=== PATIENT | female | born 1995 | race Two or more races ===

== ENCOUNTER 2017-04-14 08:50 | Emergency (ER) | payer OTHER ==
[2017-04-14 08:58] VITALS: BP 125/79; PULSE 90; TEMP 98.3; BMI 26.5
--- NOTE | 2017-04-14 09:11 | PDOC ---
History of Present Illness - General Chief Complaint: Asthma Stated Complaint: SOB Time Seen by Provider: 04/14/17 09:10 History Source: Patient Exam Limitations: No Limitations - History of Present Illness Initial Comments: 04/14/17 09:21 Patient came to emergency department with re-exacerbation of her asthma. has been using her nebulizers at home with minimal resolved. every year gets a worsened asthma attack secondary to pollens and seasonal ALLERGIES. also has a dog at home where she nose is an allergen provoker. Denies fever, denies any phlegm production, but has concerns about pneumonia as she is been admitted more than once for severe respiratory issues and minimal 9 last year. 04/14/17 19:47 Timing/Duration: reports: constant, getting worse Severity: reports: moderate Possible Cause: Yes: allergen exposure Modifying Factors: improves with: albuterol inhaler, coughing Associated Symptoms: reports: chest pain/soreness, nasal congestion, shortness of breath. denies: fever/chills Past History - Travel Traveled outside of the country in the last 30 days: No Close contact w/someone who was outside of country & ill: No - Past Medical History Allergies/Adverse Reactions: Allergies Allergy/AdvReac Type Severity Reaction Status Date / Time azithromycin [From Zithromax] AdvReac Mild Vomiting Verified 04/14/17 08:54 Home Medications: Ambulatory Orders Albuterol Sulfate Inhaler - [Ventolin HFA Inhaler -] 1 - 2 inh IH Q4H #1 inhaler 06/14/12 Albuterol 0.083% Nebulizer Gay [Ventolin 0.083% Nebulizer Soln -] 1 neb NEB Q4H PRN #30 vial 04/14/17 Prednisone [Deltasone -] 20 mg PO BID #8 tablet 04/14/17 Asthma: Yes - Reproductive History (#): 1 Therapeutic (s) & number: (DENIES) - Immunization History Immunization Up to Date: Yes - Suicide/Smoking/Psychosocial Hx Smoking Status: No Smoking History: Never smoked Have you smoked in the past 12 months: No Number of Cigarettes Smoked Daily: 0 Information on smoking cessation initiated: No Hx Alcohol Use: No Drug/Substance Use Hx: No Substance Use Type: None Respiratory Specific PMHX - Complaint Specific PMHX Bronchitis: Yes Pneumonia: Yes Review of Systems - Review of Systems Able to Perform ROS?: Yes Is the patient limited Nepalese proficient: Yes Constitutional: Yes: Symptoms Reported, See HPI, Malaise. No: Fever, Loss of Appetite HEENTM: Yes: Symptoms Reported, See HPI, Nose Congestion Respiratory: Yes: Symptoms reported, See HPI, Cough, Shortness of Breath, Wheezing Cardiac (ROS): No: Symptoms Reported ABD/GI: Yes: See HPI. No: Symptoms Reported : No: Symptoms Reported Musculoskeletal: Yes: Symptoms Reported, See HPI Integumentary: Yes: See HPI. No: Symptoms Reported All Other Systems: Reviewed and Negative *Physical Exam - Vital Signs Last Vital Signs Temp Pulse Resp BP Pulse Ox 98.3 F 90 16 125/79 98 04/14/17 08:55 04/14/17 08:55 04/14/17 08:55 04/14/17 08:55 04/14/17 08:55 - Physical Exam General Appearance: Yes: Nourished, Appropriately Dressed, Apparent Distress, Mild Distress HEENT: positive: RACQUEL, TMs Normal (congested but landmarks easily visualized), Nasal Congestion, Rhinorrhea, Sinus Tenderness. negative: Pharynx Normal, Pharyngeal Erythema Neck: positive: Supple. negative: Tender Respiratory/Chest: positive: Labored Respiration, Decreased Breath Sounds, Rhonchi, Wheezing. negative: Lungs Clear, Normal Breath Sounds Cardiovascular: positive: Regular Rate Gastrointestinal/Abdominal: positive: Soft. negative: Tender Extremity: positive: Normal Capillary Refill, Normal Inspection Integumentary: positive: Normal Color, Dry, Warm, Pale Neurologic: positive: topstitcher lockstitch II-XII NML intact, Fully Oriented, Alert, Normal Mood/ Affect, Normal Response, Motor Strength 5/5 Progress Note - Progress Note Progress Note: Asthma exacerbation, will resolved after 4 DuoNeb nebs and prednisone however has continued wheezing. Chest x-ray negative for pneumonia Patient feels ready for discharge, and understands need for continued nebulizers today and urgency to return to emergency department for any worsening of symptoms *DC/Admit/Observation/Transfer Diagnosis at time of Disposition: Asthma with exacerbation Qualifiers: Asthma severity: moderate Asthma persistence: unspecified Qualified Code(s): J45.901 - Unspecified asthma with (acute) exacerbation - Discharge Dispostion Disposition: HOME Condition at time of disposition: Stable Admit: No - Prescriptions Prescriptions: Prednisone [Deltasone -] 20 mg PO BID #8 tablet Albuterol 0.083% Nebulizer Gay [Ventolin 0.083% Nebulizer Soln -] 1 neb NEB Q4H PRN #30 vial PRN Reason: Cough - Referrals Referrals: Jt Stinson MD [Staff Physician] - - Patient Instructions Printed Discharge Instructions: Asthma -- Adult, DI for Allergic Rhinitis Additional Instructions: Rest, drink lots of fluids: Teas, water, soups, Pedialyte Saltwater gargles Steamy showers/seem to face break up mucus Avoid contact with others until fevers and cough resolved Lots of handwashing and good hygiene Continue [id number] medications for symptomatic relief Tylenol or Motrin for fever and pain Continue antihistamines until pollen season is over Continue albuterol nebulizers every 4-6 hours for the next 3 days then as needed Complete prednisone 40 mg daily for the next 4 days Followup with private physician in one to 2 days as needed Return to emergency department for worsened symptoms, fevers, dehydration - Post Discharge Activity Forms/Work/School Notes: Back to School
[2017-04-14] MEDS ORDERED: ALBUTEROL SO4 2.5/IPRATROPIUM 0.5 INH SOL 3 ML VIAL.NEB. NEB ONE ×4 (09:20→10:58)
[2017-04-14] MEDS ORDERED: predniSONE 20 MG TABLET (UD) PO ONE (09:20)
[2017-04-14] MEDS ORDERED: predniSONE 20 MG TABLET (UD) ONE (09:23)
[2017-04-14] MEDS: ALBUTEROL SO4 2.5/IPRATROPIUM 0.5 INH SOL 3 ML VIAL.NEB. NEB SCH ×3 (09:30→10:07)
== END 2017-04-14 12:17 | disposition home or self-care (01) ==
LOC: JERFT 08:50
PROC: 3E0F7GC Introduction of Other Therapeutic Substance into Respiratory Tract, Via Natural or Artificial Opening (ICD-10-PCS; principal; 2017-04-14)
PROC: 3E0F7GC Introduction of Other Therapeutic Substance into Respiratory Tract, Via Natural or Artificial Opening (ICD-10-PCS; 2017-04-14)
DX: J45.901 Unspecified asthma with (acute) exacerbation (principal)
CPT/HCPCS: 71020-TC; 94640; 99281-25

== ENCOUNTER 2017-07-14 17:59 | Emergency (ER) | payer OTHER ==
[2017-07-14 18:05] VITALS: BP 120/59; PULSE 69; TEMP 97.7; BMI 21.9
[2017-07-14] MEDS ORDERED: DIPHTH,PERTUSS(ACELL),TET 0.5 ML DISP.SYRIN IM ONE (19:21)
--- NOTE | 2017-07-14 19:25 | PDOC ---
History of Present Illness - General Chief Complaint: Injury Stated Complaint: HAND INJURY Time Seen by Provider: 07/14/17 18:14 History Source: Patient Exam Limitations: No Limitations - History of Present Illness Initial Comments: 07/14/17 19:21 21-year-old female presents to the ED for evaluation of injury to the left ear. Patient states is his denies when it slipped causing it to puncture the top aspect of the left hand. Patient states is not up-to-date on tetanus and denies any sensory changes distal of injury. Timing/Duration: 1/2 hour Associated Symptoms: reports: denies symptoms Past History - Travel Traveled outside of the country in the last 30 days: No - Past Medical History Allergies/Adverse Reactions: Allergies Allergy/AdvReac Type Severity Reaction Status Date / Time azithromycin [From Zithromax] AdvReac Mild Vomiting Verified 07/14/17 18:05 Home Medications: Ambulatory Orders NK [No Known Home Medication] 07/14/17 Asthma: Yes COPD: No Thyroid Disease: No - Reproductive History (#): 1 Therapeutic (s) & number: (DENIES) - Immunization History Tetanus Status: More than 5 years Td Vaccination: No TDAP Vaccination: No Immunization Up to Date: Yes - Suicide/Smoking/Psychosocial Hx Smoking Status: No Smoking History: Never smoked Have you smoked in the past 12 months: No Number of Cigarettes Smoked Daily: 0 Information on smoking cessation initiated: No Hx Alcohol Use: No Drug/Substance Use Hx: No Substance Use Type: None Patient Lives Alone: No Lives with/in: spouse/SO Review of Systems - Review of Systems Able to Perform ROS?: Yes Constitutional: No: Symptoms Reported Integumentary: Yes: See HPI Neurological: No: Symptoms reported, Numbness, Paresthesia, Weakness *Physical Exam - Vital Signs Last Vital Signs Temp Pulse Resp BP Pulse Ox 97.7 F 69 18 120/59 100 07/14/17 18:03 07/14/17 18:03 07/14/17 18:03 07/14/17 18:03 07/14/17 18:03 - Physical Exam General Appearance: Yes: Nourished, Appropriately Dressed. No: Apparent Distress Integumentary: positive: Other (noted 2 cm linear laceration over the left PIP joint dorsally. noted 0.5 linear laceration over the dorsal aspect of left hand over midshaft of third metacarpal bone) Neurologic: positive: Motor Strength 5/5 (left hand grasp. Full extension and flexion of left second digit). negative: Sensory Deficit Procedures - Laceration/Wound Repair Left Hand Wound Length: to 2.5 cm Wound's Depth, Shape: superficial, linear Irrigated w/ Saline: Yes Betadine Prep: Yes Anesthesia: 1% Lidocaine Amount of Anesthetic (ccs): 1 Suture Size/Type: 4:0 Number of Sutures: 4 Sterile Dressing Applied: Yes Left Finger Wound Length: to 2.5 cm Wound's Depth, Shape: superficial, linear Irrigated w/ Saline: Yes Betadine Prep: Yes Wound Repaired With: Dermabond ED Treatment Course - RADIOLOGY Radiology Studies Ordered: Category Date Time Status HAND- LEFT [RAD] Stat Radiology 07/14/17 18:40 Taken Medical Decision Making - Medical Decision Making 07/14/17 19:25 Patient laceration of her left hand. Patient had through and through laceration from a metal knife on the dorsal aspect of her left hand. Patient requiring tetanus and x-ray. Laceration repair done without difficulty. Patient to return in 10-14 days for suture removal. *DC/Admit/Observation/Transfer Diagnosis at time of Disposition: Laceration of left hand - Discharge Dispostion Disposition: HOME Condition at time of disposition: Improved - Referrals - Patient Instructions Printed Discharge Instructions: DI for Laceration Repair -- Simple Additional Instructions: Please keep very clean and dry changing the bandage daily as demonstrated in the ER. Please return here in 10-14 days for suture removal. If you notice any redness swelling or drainage from the site, please return sooner as this may be a sign of infection. - Post Discharge Activity
== END 2017-07-14 19:30 | disposition home or self-care (01) ==
LOC: JERFT 17:59
PROC: 3E0234Z Introduction of Serum, Toxoid and Vaccine into Muscle, Percutaneous Approach (ICD-10-PCS; principal; 2017-07-14)
PROC: 0HQGXZZ Repair Left Hand Skin, External Approach (ICD-10-PCS; 2017-07-14)
DX: S61.412A Laceration without foreign body of left hand, initial encounter (principal); W26.0XXA Contact with knife, initial encounter; Y93.89 Activity, other specified; Y92.038 Other place in apartment as the place of occurrence of the external cause; Y99.8 Other external cause status
CPT/HCPCS: 12001; 73130-TC-LT; 90471; 90715; 99282-25

== ENCOUNTER 2019-08-13 21:23 | Emergency (ER) | payer OTHER ==
[2019-08-13 21:34] VITALS: BP 103/71; PULSE 64; TEMP 98.4; BMI 27.1
[2019-08-13] MEDS ORDERED: RABIES VACCINE (PCEC)/PF 2.5 UNIT/VIAL IM ONE ×2 (21:34→23:00)
[2019-08-13] MEDS ORDERED: RABIES IMMUNE GLOBULIN 300 UNITS/1 ML VIAL IM ONE (21:34)
[2019-08-13] MEDS ORDERED: DIPHTH,PERTUSS(ACELL),TET 0.5 ML DISP.SYRIN IM ONE ×2 (21:34→23:00)
--- NOTE | 2019-08-13 21:35 | PDOC ---
Rapid Medical Evaluation Chief Complaint: Bite Time Seen by Provider: 08/13/19 21:31 Medical Evaluation: Allergies Allergy/AdvReac Type Severity Reaction Status Date / Time azithromycin [From Zithromax] AdvReac Mild Vomiting Verified 07/14/17 18:05 08/13/19 21:31 I have performed a brief in-person evaluation of this patient. The patient presents with a chief complaint of: Stray dog bit L ankle. Does not remember last tetanus vaccine Pertinent physical exam findings:multiple superficial abrasions to medial L ankle I have ordered the following:boostrix, rabies vaccine/immunoglobulin The patient will proceed to the ED for further evaluation. Discharge Disposition - Diagnosis Dog bite Qualifiers: Encounter type: initial encounter Qualified Code(s): W54.0XXA - Bitten by dog, initial encounter - Referrals - Patient Instructions - Post Discharge Activity
--- NOTE | 2019-08-13 22:40 | PDOC ---
History of Present Illness - General Chief Complaint: Bite Stated Complaint: DOG BITE Time Seen by Provider: 08/13/19 21:31 History Source: Patient - History of Present Illness Initial Comments: 08/13/19 22:35 24 year old female c/o dog bite to left ankle. At 8 PM. Patient reports that the dog was on the street with a collar. unknown who the dog belongs to. Patient is unsure her last tetanus vaccine 08/13/19 22:39 Past History - Past Medical History Allergies/Adverse Reactions: Allergies Allergy/AdvReac Type Severity Reaction Status Date / Time azithromycin [From Zithromax] AdvReac Mild Vomiting Verified 08/13/19 21:34 Home Medications: Ambulatory Orders NK [No Known Home Medication] 07/14/17 Asthma: Yes COPD: No Thyroid Disease: No - Reproductive History (#): 1 Therapeutic (s) & number: (DENIES) - Immunization History Td Vaccination: No TDAP Vaccination: No Immunization Up to Date: No - Psycho Social/Smoking Cessation Hx Smoking Status: No Smoking History: Never smoked Have you smoked in the past 12 months: No Number of Cigarettes Smoked Daily: 0 Hx Alcohol Use: No Drug/Substance Use Hx: No Substance Use Type: None Review of Systems - Review of Systems Able to Perform ROS?: Yes Is the patient limited Bhutanese proficient: No Integumentary: Yes: Other (dog bite) *Physical Exam - Vital Signs Last Vital Signs Temp Pulse Resp BP Pulse Ox 98.4 F 64 18 103/71 98 08/13/19 21:31 08/13/19 21:31 08/13/19 21:31 08/13/19 21:31 08/13/19 21:31 - Physical Exam General Appearance: Yes: Appropriately Dressed Extremity: positive: Other (bite kiran to left ankle/ calf) Integumentary: positive: Normal Color, Dry, Warm Neurologic: positive: Fully Oriented, Alert, Normal Mood/Affect Procedures - Consent Consent obtained: Verbal - Additional Procedures Progress: 08/13/19 23:52 infiltrated the rabied IVIG to left lower extremity boite sites ED Progress Note - Progress Note Progress Note: 08/13/19 22:41 A: dog bite P; Rabies IVIG rabies vaccine tetanus forms faxed to [facility] Discharge - Discharge Information Problems reviewed: Yes Clinical Impression/Diagnosis: Rabies, need for prophylactic vaccination against Dog bite Qualifiers: Encounter type: initial encounter Qualified Code(s): W54.0XXA - Bitten by dog, initial encounter Disposition: HOME - Follow up/Referral - Patient Discharge Instructions Patient Printed Discharge Instructions: DI for Animal Bites Additional Instructions: please return as per schedule for rabies vaccine on 08/16/2019; 08/20/2019; 2019; 09/10/2019 - Post Discharge Activity Work/Back to School Note: Back to Work
[2019-08-13] MEDS ORDERED: RABIES IMMUNE GLOBULIN 300 UNITS/1 ML VIAL ONE ×2 (23:00→23:18)
== END 2019-08-14 00:06 | disposition home or self-care (01) ==
LOC: JERFT 21:23
PROC: 3E0234Z Introduction of Serum, Toxoid and Vaccine into Muscle, Percutaneous Approach (ICD-10-PCS; principal; 2019-08-13)
PROC: 3E0234Z Introduction of Serum, Toxoid and Vaccine into Muscle, Percutaneous Approach (ICD-10-PCS; 2019-08-13)
PROC: 3E0234Z Introduction of Serum, Toxoid and Vaccine into Muscle, Percutaneous Approach (ICD-10-PCS; 2019-08-13)
DX: S90.572A Other superficial bite of ankle, left ankle, initial encounter (principal); W54.0XXA Bitten by dog, initial encounter; Y93.89 Activity, other specified; Y92.414 Local residential or business street as the place of occurrence of the external cause; Y99.8 Other external cause status; Z88.1 Allergy status to other antibiotic agents
CPT/HCPCS: 73590-TC-LT-FY; 90375; 90471; 90675; 90715; 96372; 99281-25

== ENCOUNTER 2024-03-30 13:42 | Inpatient (IN) | payer OTHER ==
[2024-03-30] MEDS: ELECTROLYTE-148 SOLN 1,000 ML IV SCH (14:19)
[2024-03-30] MEDS ORDERED: BUTORPHANOL TARTRATE 1 MG/ML VIAL IVPB PRN (14:23)
[2024-03-30 14:54] VITALS: BMI 36.2
[2024-03-30 15:23] LABS: BASO % 0.3 % (0-2.0); EOS % 3.4 % (0-4.5); HEMATOCRIT 36.5 % (32.4-45.2); HEMOGLOBIN 11.7 GM/dL (10.7-15.3); LYMPH % 19.7 % (8-40); MEAN CELL VOLUME 81.1 fl (80-96); MONO % 9.5 % (3.8-10.2); NEUT % 67.1 % (42.8-82.8); PLATELET COUNT 270 10^3/uL (134-434); RDW 15.4 % (11.6-15.6); WHITE BLOOD COUNT 9.4 K/mm3 (4.0-10.0)
[2024-03-30 15:30] LABS: INR 0.91 (0.83-1.09); PROTHROMBIN TIME (PATIENT) 10.3 SEC (9.7-13.0)
[2024-03-30 15:33] LABS: ACTIVATED PTT 25.2 SECONDS (25.2-36.5)
[2024-03-30 15:41] LABS: CALCIUM 9.4 mg/dL (8.5-10.1)
[2024-03-30 15:42] LABS: BLOOD UREA NITROGEN 8.4 mg/dL (7-18)
[2024-03-30 15:45] LABS: CREATININE 0.7 mg/dL (0.55-1.3)
[2024-03-30 16:38] LABS: HIV INTERPRETATION NEGATIVE (NEGATIVE)
[2024-03-30] MEDS: DINOPROSTONE 10 MG VAGINAL SUPPOSITORY VG ONE (19:28)
[2024-03-31] MEDS ORDERED: FENTANYL/BUPIVACAINE/NS/PF - PCEA - 50 ML DISP.SYRIN EP ONE ×4 (00:09→15:02)
[2024-03-31] MEDS ORDERED: BUPIVACAINE HCL/PF 0.25% (2.5MG/ML) 10 ML VIAL ONE ×3 (00:18→11:38)
[2024-03-31] MEDS: FENTANYL/BUPIVACAINE/NS/PF - PCEA - 50 ML DISP.SYRIN EP SCH (00:35)
[2024-03-31] MEDS ORDERED: NALOXONE HCL 0.4 MG/ML VIAL IVPUSH PRN (00:46)
[2024-03-31] MEDS ORDERED: OXYTOCIN 30 UNITS in 0.9% NS 30 UNIT/500 ML INFUS.BAG IVPB ONE (01:01)
[2024-03-31] MEDS: OXYTOCIN 30 UNITS in 0.9% NS 30 UNIT/500 ML INFUS.BAG IVPB SCH (01:10)
[2024-03-31] MEDS ORDERED: FENTANYL CITRATE/PF 50 MCG/ML VIAL ONE ×2 (08:37→11:38)
[2024-03-31] MEDS: PROMETHAZINE HCL 25 MG/1 ML VIAL IVPB ONE (14:35)
[2024-03-31] MEDS ORDERED: OXYTOCIN 20 UNITS in 0.9% NS 20 UNIT/1,000 ML INFUS.BAG IV ONE (14:44)
[2024-03-31] MEDS: OXYTOCIN 20 UNITS in 0.9% NS 20 UNIT/1,000 ML INFUS.BAG IV SCH (15:30)
[2024-03-31] MEDS ORDERED: IBUPROFEN 600 MG TABLET (FP) PO ONE (15:51)
[2024-03-31] MEDS: IBUPROFEN 600 MG TABLET (FP) PO PRN (15:55)
[2024-03-31 16:31] LABS: CORD BASE EXCESS -11.4 mmol/L (0-2); CORD HCO3 18.1 mmHg (20-29); CORD pH 7.142 (7.14-7.44)
[2024-03-31 16:33] LABS: CORD BASE EXCESS -8.7 mmol/L (0-2); CORD HCO3 18.6 mmHg (20-29); CORD PCO2 44.7 mmHg (30-78); CORD pH 7.238 (7.14-7.44)
[2024-03-31] MEDS ORDERED: oxyCODONE HCL 5 MG TABLET PO PRN (16:52)
[2024-03-31] MEDS ORDERED: METHYLERGONOVINE MALEATE 0.2 MG/1 ML AMP IM PRN (16:52)
[2024-03-31] MEDS ORDERED: BISACODYL 10 MG SUPP.RECT RC PRN (16:52)
[2024-03-31] MEDS ORDERED: BENZOCAINE 28 GM HEMORRHOIDAL OINTMENT TP PRN (16:52)
[2024-03-31] MEDS ORDERED: ACETAMINOPHEN 325 MG TABLET (FP) PO PRN (16:52)
[2024-03-31] MEDS: WITCH HAZEL 50% (TUCKS) 40 PAD/JAR PAD TP PRN (19:00)
[2024-03-31] MEDS: FERROUS SO4 325 MG TABLET (FP) PO SCH (20:05)
[2024-03-31] MEDS: BENZOCAINE 20% 57 GM BOTTLE TP PRN (21:57)
[2024-04-01 07:35] LABS: BASO % 0.4 % (0-2.0); EOS % 3.5 % (0-4.5); HEMATOCRIT 31.8 % (32.4-45.2); LYMPH % 16.5 % (8-40); MCH 25.8 pg (25.7-33.7); MCHC 31.5 g/dl (32.0-36.0); MEAN CELL VOLUME 81.7 fl (80-96); MEAN PLT VOLUME 8.7 fl (7.5-11.1); MONO % 8.8 % (3.8-10.2); NEUT % 70.8 % (42.8-82.8); PLATELET COUNT 233 10^3/uL (134-434); RBC 3.89 M/mm3 (3.60-5.2); RDW 15.3 % (11.6-15.6)
[2024-04-01] MEDS: PRENATAL VITAMINS W/ FOLIC ACID TABLET (FP) PO SCH (09:41)
[2024-04-01] MEDS: DIPHTH,PERTUSS(ACELL),TET 0.5 ML DISP.SYRIN IM ONE (10:15)
[2024-04-01] MEDS ORDERED: SENNOSIDES/DOCUSATE COMBO (SENNA PLUS) TABLET (UD) PO PRN (22:00)
[2024-04-02 12:07] VITALS: BP 124/76; PULSE 72; RESP 18; TEMP 98.7
== END 2024-04-02 15:15 | disposition home or self-care (01) | DRG 807 ==
LOC: JLDR 13:42 → J3W 03-31 18:05
PROVIDERS: ADMIT Obstetrics & Gynecology; ATTEND Obstetrics & Gynecology
PROC: 3E0P7VZ Introduction of Hormone into Female Reproductive, Via Natural or Artificial Opening (ICD-10-PCS; 2024-03-30)
PROC: 10E0XZZ Delivery of Products of Conception, External Approach (ICD-10-PCS; principal; 2024-03-31)
PROC: 0HQ9XZZ Repair Perineum Skin, External Approach (ICD-10-PCS; 2024-03-31)
PROC: 0W8NXZZ Division of Female Perineum, External Approach (ICD-10-PCS; 2024-03-31)
DX: O41.03X0 Oligohydramnios, third trimester, not applicable or unspecified (principal); Z37.0 Single live birth; O48.0 Post-term pregnancy; O70.0 First degree perineal laceration during delivery; Z3A.40 40 weeks gestation of pregnancy
CPT/HCPCS: 36415; 36600; 59409; 80048; 82803; 85025; 85461; 85610; 85730; 86780; 86803; 86850; 86870; 86880; 86900; 86901; 86902; 87389; 90715